=== PATIENT | female | born 1930 | race Caucasian/White ===

== ENCOUNTER 2016-07-11 17:22 | Emergency (ER) | payer OTHER, MEDICARE, MEDICAID ==
[~2016-07-11] VITALS: Ht 154.9 cm; Wt 77.1 kg
[2016-07-11 17:35] VITALS: BP 164/59
--- NOTE | 2016-07-11 17:36 | NUR ---
86/F BIBA FROM HOME FOR LEFT SHOULDER PAIN FROM FALL 1 HOUR AGO ;DENIES LOC. PATIENT DENIES N/V/D; SKIN ;SMALL ABRASION LEFT ELBOW; PAIN LEFT SHOULDER & LEFT EYEBROW; AAOX4 UNSTEADY GAIT; LUNGS CLEAR BL; HR EVEN AND REGULAR; PT DENIES ANY FEVER, CP OR SOB AT THIS TIME; PATIENT STATES PAIN OF 7/10 AT THIS TIME; VSS; PATIENT POSITIONED FOR COMFORT; HOB ELEVATED; BEDRAILS UP X2; BED DOWN. ER MD MADE AWARE OF PT STATUS.
--- NOTE | 2016-07-11 17:52 | NUR ---
PT TAKEN TO CT&X RAY VIA CHAMRAINERSHARITA ACCCOMPANIED BY RN PALLIATIVE
--- NOTE | 2016-07-11 19:15 | NUR ---
Pt report given to NELLY Cardenas. Transfer of care at this time.
[2016-07-11] MEDS ORDERED: KETOROLAC 60 MG/2 ML VIAL IM ONE (19:50)
[2016-07-11 21:00] VITALS: BP 139/71
--- NOTE | 2016-07-11 21:00 | NUR ---
Patient discharged with v/s stable. Written and verbal after care instructions given and explained. Patient alert, oriented and verbalized understanding of instructions. Ambulatory with steady gait. All questions addressed prior to discharge. ID band removed. Patient advised to follow up with PMD. Rx of ULTRAM given. Patient educated on indication of medication including possible reaction and side effects. Opportunity to ask questions provided and answered.
== END 2016-07-11 21:00 | disposition home or self-care (01) ==
LOC: MED 17:22
DX: S52.502A Unspecified fracture of the lower end of left radius, initial encounter for closed fracture (principal); S40.012A Contusion of left shoulder, initial encounter; R03.0 Elevated blood-pressure reading, without diagnosis of hypertension; M79.605 Pain in left leg; W20.8XXA Other cause of strike by thrown, projected or falling object, initial encounter; Y93.89 Activity, other specified; Y92.89 Other specified places as the place of occurrence of the external cause; Y99.8 Other external cause status
CPT/HCPCS: 29125; 70450; 73030; 73110; 96372; 99284; J1885; Q0092